=== PATIENT | female | born 2000 | race Caucasian/White ===

== ENCOUNTER 2021-01-01 18:25 | Outpatient (REF) | payer BC, SELFPAY ==
--- NOTE | 2021-01-01 16:30 | PAPFT_PTH ---
PATIENT: ESTEFANI OREILLY [facility] U#:[id number] AGE/SX: 20/F ROOM: RE01/01/[address]: Adriana Arellano : 2000 BED: DIS: 01/01/2021 SPEC #: [id number] RECD: 01/02/21 13:11 STATUS: ERIKA REQ #: [id number] FOX: 01/01/21 16:[address]: Adriana Arellano DEPT: [facility] Cytology RECD BY: Taylor Pickard Tissues: 1 - CX/ENDOCX FOR PAP SMEARS Procedures: PAP THIN PREP/[facility] Screening Comments: [id number]
[2021-01-03 15:27] LABS: Chlamydia Result Negative (Negative); GC Result Negative (Negative)
== END 2021-01-01 18:26 | disposition home or self-care (01) ==
LOC: NCHCN 18:25
PROVIDERS: PCP Nurse Practitioner Family; Visit Provider Nurse Practitioner Family
DX: N92.0 Excessive and frequent menstruation with regular cycle (principal); Z00.00 Encounter for general adult medical examination without abnormal findings; Z11.3 Encounter for screening for infections with a predominantly sexual mode of transmission; Z12.4 Encounter for screening for malignant neoplasm of cervix; Z20.2 Contact with and (suspected) exposure to infections with a predominantly sexual mode of transmission; R87.610 Atypical squamous cells of undetermined significance on cytologic smear of cervix (ASC-US)
CPT/HCPCS: 87491; 87591; 88142

== ENCOUNTER 2021-01-09 03:23 | Outpatient (CLI) | payer BC, SELFPAY ==
[2021-01-09 08:38] LABS: HGB 12.5 g/dL (11.2-15.7); MCH 29.6 pg (27.0-33.0); MCHC 34.7 % (32.0-36.0); MCV 85.1 fL (80-95); MPV 9.8 fL (8.0-11.0); Platelet Count 184 10^3/uL (130-400); RBC 4.23 10^6/uL (3.93-5.22); RDW 12.2 % (11.7-14.6); WBC 6.19 10^3/uL (4.4-10.8)
[2021-01-09 09:14] LABS: Iron 60 ug/dL (50-170); Total Iron Binding Capacity 230 ug/dL (250-450); Transferrin Sat 26 % (15-50)
[2021-01-10 12:00] LABS: HIV-1/2 Ag & Ab Screen Negative (Negative)
== END 2021-01-09 03:24 | disposition home or self-care (01) ==
LOC: LBO 03:23
PROVIDERS: PCP Nurse Practitioner Family; Visit Provider Nurse Practitioner Family
DX: R53.83 Other fatigue (principal); N92.0 Excessive and frequent menstruation with regular cycle; Z11.4 Encounter for screening for human immunodeficiency virus [HIV]
CPT/HCPCS: 36415; 85027; 87389; 83540; 83550